=== PATIENT | female | born 1995 | race African-American/Black ===

== ENCOUNTER 2017-01-03 13:54 | Emergency (ER) | payer OTHER ==
[~2017-01-03] VITALS: Ht 165.1 cm; Wt 58.0 kg
[~2017-01-03 13:54] MED LIST: DICL50TA2 PO; LAMI25TA3 PO; OMEP20TA39 PO
[2017-01-03 13:55] VITALS: BP 140/87; PULSE 84; RESP 16; TEMP 98.1; O2SAT 99
--- NOTE | 2017-01-03 14:14 | PD ---
Physical Exam Date Seen by Provider: January 03, 2017 Time Seen by Provider: 14:13 Narrative Pt presents with lower abdominal cramping, LMP a month ago. Hx of ovarian cysts. + nausea, no vomiting. VSS, awaiting bed placement. Data Data Last Documented VS Vital Signs Date Time Temp Pulse Resp B/P Pulse Ox O2 Delivery O2 Flow Rate FiO2 01/03/17 13:55 98.1 84 16 140/87 99 MDM Supervised Visit with ELROY: Lashell Mancilla January 03, 2017 14:14
[2017-01-03] MEDS ORDERED: SODIUM CHLOR 0.9% 1000 ML INJ 1,000 ML IV SCH (14:53)
[2017-01-03] MEDS ORDERED: ONDANSETRON HCL 4 MG/2 ML VIAL IVP ONE (15:00)
[2017-01-03] MEDS ORDERED: SODIUM CHLORIDE 0.9% FLUSH 10 ML FLUSH IV FLUSH PRN (15:00)
[2017-01-03] MEDS ORDERED: KETOROLAC TROMETHAMINE 30 MG/ML (IVP) VIAL IV PUSH ONE (15:00)
[2017-01-03 15:51] LABS: ALT (GPT) 13 U/L (10-53); ANION GAP 6 MEQ/L (5-15); AST (GOT) 13 U/L (15-37); BICARBONATE 28.1 MEQ/L (21.0-32.0); BLOOD UREA NITROGEN 6 MG/DL (7-18); CHLORIDE 103 MEQ/L (98-107); GLOMERULAR FILTRATION RATE 187 ML/MIN (>89); POTASSIUM 3.6 MEQ/L (3.5-5.1); SODIUM (NA) 137 MEQ/L (136-145)
--- NOTE | 2017-01-03 15:52 | PD ---
HPI Chief Complaint: Abdominal Pain Time Seen by Provider: 14:33 Travel History International Travel<30 days: No Contact w/Intl Traveler<30days: No Traveled to known affect area: No History of Present Illness HPI Patient is a 21 year old female with history of ovarian cysts, who comes in complaining of lower abdominal pain for the past 3 days. She says the pain is across her lower abdomen and has been getting worse. She says she was recently on her menstrual period, but it had gone away. Now she has noticed some spotting. She has had some nausea, but denies vomiting. She denies fevers or chills. PFSH Past Medical History Asthma: Yes (exercise induced) Respiratory: Yes Tetanus Vaccination: Never Vaccinated Influenza Vaccination: Yes ?: Not LMP: 01/01/17 Past Surgical History Surgical History: No Previous Surgery Social History Alcohol Use: No Tobacco Use: No Substance Use: No Allergies-Medications (Allergen,Severity, Reaction): Coded Allergies: No Known Allergies (Unverified , 12/01/15) Reported Meds & Prescriptions Reported Meds & Active Scripts Active Motrin Ib (Ibuprofen) 200 Mg Tab 600 Mg PO Q6H PRN Doxycycline Hyclate 100 Mg Cap 100 Mg PO BID 14 Days Review of Systems Except as stated in HPI: all other systems reviewed are Neg General / Constitutional: No: Fever, Chills HENT: Positive: Headaches, No: Lightheadedness Cardiovascular: No: Chest Pain or Discomfort Respiratory: No: Shortness of Breath Gastrointestinal: Positive: Nausea, Abdominal Pain, No: Vomiting Genitourinary: No: Dysuria Skin: No Rash, No Itching Neurologic: No: Weakness, Dizziness Physical Exam Narrative GENERAL: Awake and alert, in no acute distress. SKIN: Focused skin assessment warm/dry. HEAD: Atraumatic. Normocephalic. EYES: Pupils equal and round. No scleral icterus. ENT: Mucous membranes pink and moist. NECK: Trachea midline. No JVD. CARDIOVASCULAR: Regular rate and rhythm. No murmur appreciated. RESPIRATORY: No accessory muscle use. Clear to auscultation. Breath sounds equal bilaterally. GASTROINTESTINAL: Abdomen soft, nondistended. Tender to palpation across the lower abdomen, worse in the right lower quadrant and suprapubic area. Voluntary guarding, no rebound. : Performed in the presence of female nurse, Lexi. Scant yellowish discharge and occasional blood. No cervical lesions. No CMT. Tender to right adnexa. MUSCULOSKELETAL: No obvious deformities. No clubbing. No cyanosis. No edema. NEUROLOGICAL: Awake and alert. No obvious cranial nerve deficits. Motor grossly within normal limits. Normal speech. PSYCHIATRIC: Appropriate mood and affect; insight and judgment normal. Data Data Last Documented VS Vital Signs Date Time Temp Pulse Resp B/P Pulse Ox O2 Delivery O2 Flow Rate FiO2 01/03/17 19:47 78 18 141/89 100 Room Air 01/03/17 13:55 98.1 Orders Complete Blood Count With Diff (01/03/17 14:53) Comprehensive Metabolic Panel (01/03/17 14:53) Urinalysis - C+S If Indicated (01/03/17 14:53) Ua Includes Microscopic (01/03/17 14:53) Ct Abd/Pel W Iv Contrast(Rout) (01/03/17 14:53) Iv Access Insert/Monitor (01/03/17 14:53) Ecg Monitoring (01/03/17 14:53) Oximetry (01/03/17 14:53) Ondansetron Inj (Zofran Inj) (01/03/17 15:00) Sodium Chlor 0.9% 1000 Ml Inj (Ns 1000 M (01/03/17 14:53) Sodium Chloride 0.9% Flush (Ns Flush) (01/03/17 15:00) Ed Urine Pregnancytest Poc (01/03/17 14:53) Ketorolac Inj (Toradol Inj) (01/03/17 15:00) Wet Prep Profile (01/03/17 15:52) Gc And Chlamydia Pcr (01/03/17 15:52) Iohexol 350 Inj (Omnipaque 350 Inj) (01/03/17 16:58) Us Pelvis Comp W Transvaginal (01/03/17 ) Doxycycline (Vibramycin) (01/03/17 19:30) Ceftriaxone Inj (Rocephin Inj) (01/03/17 19:30) Lidocaine 1% Inj (50 Ml) (Xylocaine 1% I (01/03/17 19:30) Labs Laboratory Tests Test 01/03/17 01/03/17 01/03/17 15:19 15:27 17:55 White Blood Count 6.0 TH/MM3 Red Blood Count 4.78 MIL/MM3 Hemoglobin 10.6 GM/DL Hematocrit 34.1 % Mean Corpuscular Volume 71.3 FL Mean Corpuscular Hemoglobin 22.1 PG Mean Corpuscular Hemoglobin 31.0 % Concent Red Cell Distribution Width 15.0 % Platelet Count 414 TH/MM3 Mean Platelet Volume 8.3 FL Neutrophils (%) (Auto) 62.0 % Lymphocytes (%) (Auto) 28.4 % Monocytes (%) (Auto) 6.2 % Eosinophils (%) (Auto) 2.1 % Basophils (%) (Auto) 1.3 % Neutrophils # (Auto) 3.7 TH/MM3 Lymphocytes # (Auto) 1.7 TH/MM3 Monocytes # (Auto) 0.4 TH/MM3 Eosinophils # (Auto) 0.1 TH/MM3 Basophils # (Auto) 0.1 TH/MM3 CBC Comment AUTO DIFF Differential Comment AUTO DIFF CONFIRMED Platelet Estimate NORMAL Platelet Morphology Comment NORMAL Ovalocytes 1+ Keratocytes OCC Sodium Level 137 MEQ/L Potassium Level 3.6 MEQ/L Chloride Level 103 MEQ/L Carbon Dioxide Level 28.1 MEQ/L Anion Gap 6 MEQ/L Blood Urea Nitrogen 6 MG/DL Creatinine 0.50 MG/DL Estimat Glomerular Filtration 187 ML/MIN Rate Random Glucose 80 MG/DL Calcium Level 8.9 MG/DL Total Bilirubin 0.4 MG/DL Aspartate Amino Transf 13 U/L (AST/SGOT) Alanine Aminotransferase 13 U/L (ALT/SGPT) Alkaline Phosphatase 34 U/L Total Protein 8.4 GM/DL Albumin 3.5 GM/DL Urine Color LIGHT-YELLOW Urine Turbidity CLEAR Urine pH 7.5 Urine Specific [place] 1.011 Urine Protein NEG mg/dL Urine Glucose (UA) NEG mg/dL Urine Ketones NEG mg/dL Urine Occult Blood SMALL Urine Nitrite NEG Urine Bilirubin NEG Urine Urobilinogen LESS THAN 2.0 MG/DL Urine Leukocyte Esterase NEG Urine RBC LESS THAN 1 /hpf Urine WBC LESS THAN 1 /hpf Urine Squamous Epithelial 1 /hpf Cells Microscopic Urinalysis Comment CULT NOT INDICATED Clue Cells (Wet Prep) NS Vaginal Trichomonas (Wet Prep) NS Vaginal Yeast (Wet Prep) NS Chlamydia trachomatis DNA NOT DETECTED (PCR) Neisseria gonorrhoeae DNA NOT DETECTED (PCR) MDM Medical Decision Making Medical Screen Exam Complete: Yes Emergency Medical Condition: Yes Medical Record Reviewed: Yes Differential Diagnosis ovarian cyst vs ovarian torsion vs gc/chlamydia vs UTI vs BV vs appendicitis Narrative Course Patient is a 21 year old female who comes in complaining with severe lower abdominal pain. Exam shows tenderness to the lower abdomen, worse in the RLQ and suprapubic area. IV established, labs sent. swab sent for gc/chlamydia and wet prep. Given IVF, Zofran, Toradol. CT abdomen and pelvis performed shows large complex cyst on the right and a smaller complex cyst on the left. Patient signed out to Dr. Banegas to follow up US to evaluate for torsion. Scripts Ibuprofen (Motrin Ib)200 Mg [id number] Mg PO Q6H PRN (PAIN SCALE 5 TO 10) #30 TAB Ref 0 Prov:Tutu Banegas MD 01/03/17 Doxycycline Hyclate 100 Mg [id number] Mg PO BID 14 Days Ref 0 Prov:Tutu Banegas MD 01/03/17 Condition: Stable Thania Hu MD January 03, 2017 15:52
[2017-01-03 15:54] LABS: ALKALINE PHOSPHATASE 34 U/L (45-117); TOTAL BILIRUBIN ADULT 0.4 MG/DL (0.2-1.0)
[2017-01-03 15:58] LABS: BLOOD, URINE SMALL (NEG); COMMENT (UR) CULT NOT INDICATED; CULTURE IF INDICATED CULT NOT INDICATED; GLUCOSE,URINE NEG (NEG); KETONE, URINE NEG (NEG); NITRITE,URINE NEG (NEG); PH, URINE 7.5 (5.0-8.5); SQUAMOUS EPITHELIAL CELL URINE 1 /hpf (0-5); URINE COLOR LIGHT-YELLOW (YELLW/STRAW)
[2017-01-03] MEDS ORDERED: IOHEXOL 350 MG/ML 10 ML VIAL (for RAD DIAG) IV ONE (16:58)
[2017-01-03 17:25] LABS: AUTOMATED NEUTROPHIL # 3.7 TH/MM3 (1.8-7.7); BASOPHIL # 0.1 TH/MM3 (0-0.2); BASOPHIL % 1.3 % (0.0-2.0); EOSINOPHIL # 0.1 TH/MM3 (0-0.4); EOSINOPHIL % 2.1 % (0.0-4.0); HEMATOCRIT 34.1 % (35.0-46.0); LYMPH % 28.4 % (9.0-44.0); LYMPHOCYTE # 1.7 TH/MM3 (1.0-4.8); MEAN CELL VOLUME 71.3 FL (80.0-100.0); MEAN CORPUSCULAR HEMOGLOBIN 22.1 PG (27.0-34.0); MONO % 6.2 % (0.0-8.0); PLATELET COUNT 414 TH/MM3 (150-450); RED BLOOD COUNT 4.78 MIL/MM3 (4.00-5.30)
[2017-01-03 17:28] LABS: HEMO FLAGS AUTO DIFF
--- NOTE | 2017-01-03 17:32 | RADRPT ---
EXAM DATE/TIME: 01/03/2017 16:53 [facility] COMPARISON: No previous studies available for comparison. INDICATIONS : Bilateral lower quadrant pain, worse on right side. IV CONTRAST: 71 cc Omnipaque 350 (iohexol) IV ORAL CONTRAST: No oral contrast ingested. RADIATION DOSE: 9.96 CTDIvol (mGy) MEDICAL HISTORY : Asthma, ovarian cysts. SURGICAL HISTORY : None. ENCOUNTER: Initial ACUITY: 3 days PAIN SCALE: 6/10 LOCATION: Right lower quadrant TECHNIQUE: Volumetric scanning of the abdomen and pelvis was performed. Using automated exposure control and ad justment of the mA and/or kV according to patient size, radiation dose was kept as low as reasonably achievable to obtain optimal diagnostic quality images. FINDINGS: LOWER LUNGS: The visualized lower lungs are clear. LIVER: Homogeneous density without lesion. There is no dilation of the biliary tree. No calcified gallston es. SPLEEN: Normal size without lesion. PANCREAS: Within normal limits. KIDNEYS: Normal in size and shape. There is no mass, stone or hydronephrosis. ADRENAL GLANDS: Within normal limits. VASCULAR: There is no aortic aneurysm. BOWEL/MESENTERY: The stomach, small bowel, and colon demonstrate no acute abnormality. There is no free intraperitone al air or fluid. No evidence of appendicitis. ABDOMINAL WALL: Within normal limits. RETROPERITONEUM: There is no lymphadenopathy. BLADDER: No wall thickening or mass. REPRODUCTIVE: Multiple bilateral adnexal cysts are present. Largest cyst on the right is approximately 14 mm. Numer ous multiloculated cysts of the left adnexa are seen left and posterior to the uterus measuring appro ximately 4.2 x 7.2 x 4.2 cm in conglomerate with the individual locules measuring up to 3.4 cm in siz e. One of the locules left of the uterus has somewhat intermediate attenuation, for example series 2 image 62, and the differential would include a debris filled cyst, recently hemorrhagic cyst or an en dometrioma. Hydrosalpinx conceivable. Miniscule if any free fluid in the pelvic cul-de-sac so acute t ubo-ovarian abscess is considered unlikely.. INGUINAL: There is no lymphadenopathy or hernia. MUSCULOSKELETAL: Within normal limits for patient age. CONCLUSION: Complex bilateral adnexal cysts, especially on the left. Please see above. The rest of the study is w ithin normal limits. Murali Ibarra MD on January 03, 2017 at 17:26 Board Certified Radiologist. This report was verified electronically.
[2017-01-03 18:01] LABS: KERATOCYTES OCC (NORMAL); OVALOCYTES 1+ (NORMAL); PLATELET ESTIMATE SMEAR NORMAL (NORMAL); PLATELET MORPHOLOGY NORMAL (NORMAL); SCAN/DIFF AUTO DIFF CONFIRMED
--- NOTE | 2017-01-03 19:07 | RADRPT ---
EXAM DATE/TIME: 01/03/2017 17:23 [facility] COMPARISON: CT ABDOMEN & PELVIS W CONTRAST, January 03, 2017, 16:53. INDICATIONS : Pelvic pain. MEDICAL HISTORY : Asthma. Ovarian cysts. Pelvic pain. SURGICAL HISTORY : None. ENCOUNTER: Initial ACUITY: 3 days PAIN SCORE: 6/10 LOCATION: Bilateral pelvis MEASUREMENTS: UTERUS: 8.0 x 5.0 x 3.6 cm ENDOMETRIAL STRIPE: 6 mm RIGHT OVARY: 5.2 x 4.8 x 3.4 cm LEFT OVARY: 3.5 x 2.6 x 2.0 cm FINDINGS: UTERUS: The myometrium has homogeneous echotexture without mass. RIGHT OVARY: There is a 5.2 cm complex mass of the right adnexa. This has low level echoes within it. There are at least 2 adjacent hypoechoic areas within this mass with the largest area measuring 3.6 cm diameter. These have low level echoes within them. A separate right ovary is not seen. LEFT OVARY: Ovary contains no mass or significant cystic lesion. MISCELLANEOUS: There is a mild amount of free fluid seen in the right adnexa. CONCLUSION: 5 cm mass in the right adnexa potentially related to an enlarged ovary with low level echoes. This is nonspecific. It may represent hemorrhagic cysts. Other etiologies including complex hydrosalpinx or TOAs could have this appearance. Endometriomas or other ovarian masses could have this appearance. Th is should be correlated clinically and followed. The left ovary and uterus appear grossly normal. Murali Seth MD on January 03, 2017 at 19:00 Board Certified Radiologist. This report was verified electronically.
[2017-01-03] MEDS ORDERED: DOXY100C PO (19:24)
--- NOTE | 2017-01-03 19:24 | PD ---
Data Data Last Documented VS Vital Signs Date Time Temp Pulse Resp B/P Pulse Ox O2 Delivery O2 Flow Rate FiO2 01/03/17 15:30 Room Air 01/03/17 13:55 98.1 84 16 140/87 99 Orders Complete Blood Count With Diff (01/03/17 14:53) Comprehensive Metabolic Panel (01/03/17 14:53) Urinalysis - C+S If Indicated (01/03/17 14:53) Ua Includes Microscopic (01/03/17 14:53) Ct Abd/Pel W Iv Contrast(Rout) (01/03/17 14:53) Iv Access Insert/Monitor (01/03/17 14:53) Ecg Monitoring (01/03/17 14:53) Oximetry (01/03/17 14:53) Ondansetron Inj (Zofran Inj) (01/03/17 15:00) Sodium Chlor 0.9% 1000 Ml Inj (Ns 1000 M (01/03/17 14:53) Sodium Chloride 0.9% Flush (Ns Flush) (01/03/17 15:00) Ed Urine Pregnancytest Poc (01/03/17 14:53) Ketorolac Inj (Toradol Inj) (01/03/17 15:00) Wet Prep Profile (01/03/17 15:52) Gc And Chlamydia Pcr (01/03/17 15:52) Iohexol 350 Inj (Omnipaque 350 Inj) (01/03/17 16:58) Us Pelvis Comp W Transvaginal (01/03/17 ) Doxycycline (Vibramycin) (01/03/17 19:30) Ceftriaxone Inj (Rocephin Inj) (01/03/17 19:30) Lidocaine 1% Inj (50 Ml) (Xylocaine 1% I (01/03/17 19:30) Labs Laboratory Tests Test 01/03/17 01/03/17 01/03/17 15:19 15:27 17:55 White Blood Count 6.0 TH/MM3 Red Blood Count 4.78 MIL/MM3 Hemoglobin 10.6 GM/DL Hematocrit 34.1 % Mean Corpuscular Volume 71.3 FL Mean Corpuscular Hemoglobin 22.1 PG Mean Corpuscular Hemoglobin 31.0 % Concent Red Cell Distribution Width 15.0 % Platelet Count 414 TH/MM3 Mean Platelet Volume 8.3 FL Neutrophils (%) (Auto) 62.0 % Lymphocytes (%) (Auto) 28.4 % Monocytes (%) (Auto) 6.2 % Eosinophils (%) (Auto) 2.1 % Basophils (%) (Auto) 1.3 % Neutrophils # (Auto) 3.7 TH/MM3 Lymphocytes # (Auto) 1.7 TH/MM3 Monocytes # (Auto) 0.4 TH/MM3 Eosinophils # (Auto) 0.1 TH/MM3 Basophils # (Auto) 0.1 TH/MM3 CBC Comment AUTO DIFF Differential Comment AUTO DIFF CONFIRMED Platelet Estimate NORMAL Platelet Morphology Comment NORMAL Ovalocytes 1+ Keratocytes OCC Sodium Level 137 MEQ/L Potassium Level 3.6 MEQ/L Chloride Level 103 MEQ/L Carbon Dioxide Level 28.1 MEQ/L Anion Gap 6 MEQ/L Blood Urea Nitrogen 6 MG/DL Creatinine 0.50 MG/DL Estimat Glomerular Filtration 187 ML/MIN Rate Random Glucose 80 MG/DL Calcium Level 8.9 MG/DL Total Bilirubin 0.4 MG/DL Aspartate Amino Transf 13 U/L (AST/SGOT) Alanine Aminotransferase 13 U/L (ALT/SGPT) Alkaline Phosphatase 34 U/L Total Protein 8.4 GM/DL Albumin 3.5 GM/DL Urine Color LIGHT-YELLOW Urine Turbidity CLEAR Urine pH 7.5 Urine Specific [place] 1.011 Urine Protein NEG mg/dL Urine Glucose (UA) NEG mg/dL Urine Ketones NEG mg/dL Urine Occult Blood SMALL Urine Nitrite NEG Urine Bilirubin NEG Urine Urobilinogen LESS THAN 2.0 MG/DL Urine Leukocyte Esterase NEG Urine RBC LESS THAN 1 /hpf Urine WBC LESS THAN 1 /hpf Urine Squamous Epithelial 1 /hpf Cells Microscopic Urinalysis Comment CULT NOT INDICATED Clue Cells (Wet Prep) NS Vaginal Trichomonas (Wet Prep) NS Vaginal Yeast (Wet Prep) NS MDM Medical Record Reviewed: Yes Supervised Visit with ELROY: No Narrative Course CBC & BMP Diagram 01/03/17 15:19 Urine negative Wet prep negative Urinalysis no UTI Last 24 hours Impressions Abdomen/Pelvis CT 01/03/17 1453 Signed Impressions: Service Date/Time: December 16:53 - CONCLUSION: Complex bilateral adnexal cysts, especially on the left. Please see above. The rest of the study is within normal limits. Murali Ibarra MD Pelvis Ultrasound 01/03/17 0000 Signed Impressions: Service Date/Time: December 17:23 - CONCLUSION: 5 cm mass in the right adnexa potentially related to an enlarged ovary with low level echoes. This is nonspecific. It may represent hemorrhagic cysts. Other etiologies including complex hydrosalpinx or TOAs could have this appearance. Endometriomas or other ovarian masses could have this appearance. This should be correlated clinically and followed. The left ovary and uterus appear grossly normal. Murali Seth MD The case was discussed at length with the patient who agrees to follow-up with obstetrics/gynecology as listed below. Case also discussed with on-call obstetrics he advises outpatient follow-up coupled with pain medication; a course of doxycycline considered not inappropriate. The patient is resting comfortably and feels better, is alert and in no distress at time of reassessment prior to discharge 725pm. The patients results and examination findings were discussed. The repeat examination is unremarkable and benign. The history, exam, diagnostic testing, and current condition do not suggest any significant pathology to warrant further testing, continued ED treatment, admission, or surgical evaluation at this point. The vital signs have been stable. The patient does not have uncontrollable pain, intractable vomiting, or other significant symptoms. The patient's condition is stable and appropriate for discharge. The patient will pursue further outpatient evaluation with a primary care physician or other designated or consulting physician as indicated in the discharge instructions. The patient expressed understanding and was agreeable with this plan. Diagnosis Primary Impression: Adnexal tenderness, right Additional Impression: Ovarian mass, right Referrals: Minoo Mora MD 1 day Additional Instruction: You have a choice when it comes to health care, and we are glad that you chose [facility] Hopefully, we have met your expectations on today's visit. You are welcome to return to [facility] at any time, as we are committed to meeting the health care needs of our community. Med/Other Pt SpecificInfo: Prescription(s) given Scripts Ibuprofen (Motrin Ib)200 Mg Cod046 Mg PO Q6H PRN (PAIN SCALE 5 TO 10) #30 TAB Ref 0 Prov:Tutu Banegas MD 01/03/17 Doxycycline Hyclate 100 Mg [id number] Mg PO BID 14 Days Ref 0 Prov:Tutu Banegas MD 01/03/17 Disposition: 01 DISCHARGE HOME Condition: Stable Tutu Banegas MD January 03, 2017 19:24
[2017-01-03] MEDS ORDERED: MOTR200T4 PO (19:26)
[2017-01-03] MEDS ORDERED: cefTRIAXone 250 MG VIAL IM ONE (19:30)
[2017-01-03] MEDS ORDERED: LIDOCAINE HCL 1% 50 ML VIAL IM ONE (19:30)
[2017-01-03] MEDS ORDERED: DOXYCYCLINE HYCLATE 100 MG CAP PO ONE (19:30)
[2017-01-03 19:47] VITALS: BP 141/89; PULSE 78; RESP 18; O2SAT 100
[2017-01-03 20:01] LABS: CHLAMYDIA PCR NOT DETECTED (NOT DETECT); NEISSERIA PCR NOT DETECTED (NOT DETECT)
== END 2017-01-03 20:29 | disposition home or self-care (01) ==
LOC: NEPD 13:54
DX: N83.9 Noninflammatory disorder of ovary, fallopian tube and broad ligament, unspecified (principal)
CPT/HCPCS: 74177; 76830; 76856; 80053; 81001; 84703; 85025; 87210; 87491; 87591; 96361; 96372; 96374; 96375; 99284; J0696; J1885; J2405; J7030; Q9967

== ENCOUNTER 2017-03-31 01:18 | Emergency (ER) | payer OTHER ==
[~2017-03-31 01:18] MED LIST changes: -DICL50TA2 PO; +DOXY100C PO; -LAMI25TA3 PO; +MOTR200T4 PO; -OMEP20TA39 PO
[2017-03-31 01:23] VITALS: BP 130/72; PULSE 84; RESP 16; TEMP 98.9; O2SAT 98
--- NOTE | 2017-03-31 01:42 | PD ---
HPI Chief Complaint: Complaint Time Seen by Provider: 01:41 Travel History International Travel<30 days: No Contact w/Intl Traveler<30days: No Traveled to known affect area: No History of Present Illness HPI 21-year-old female with history of no significant past medical issues, presents to the ER today because she is having burning on urination for 4-5 days. She has been having lower back pains and lower abdominal discomfort as well. She denies any vomiting, fevers, unusual vaginal discharge, or any other symptoms. Modifying Factors: None Associated Signs & Symptoms: Urinary symptoms, lower back and lower abdominal pains Risk Factors: None PFSH Past Medical History Asthma: Yes (exercise induced) Diminished Hearing: No Respiratory: Yes ?: Not LMP: 03/21/17 Past Surgical History Surgical History: No Previous Surgery Social History Alcohol Use: No Tobacco Use: No Substance Use: No Allergies-Medications (Allergen,Severity, Reaction): Coded Allergies: No Known Allergies (Unverified , 12/01/15) Reported Meds & Prescriptions Reported Meds & Active Scripts Active Review of Systems Except as stated in HPI: all other systems reviewed are Neg Physical Exam Narrative GENERAL: Well-developed young -[place]ian female patient currently in no acute distress. Awake and oriented 3. SKIN: Focused skin assessment warm/dry. HEAD: Atraumatic. Normocephalic. EYES: Pupils equal and round. No scleral icterus. No injection or drainage. ENT: No nasal bleeding or discharge. Mucous membranes pink and moist. NECK: Trachea midline. No JVD. CARDIOVASCULAR: Regular rate and rhythm. No murmur appreciated. RESPIRATORY: No accessory muscle use. Clear to auscultation. Breath sounds equal bilaterally. GASTROINTESTINAL: Abdomen soft, mild suprapubic tenderness without guarding or rebound, nondistended. Hepatic and splenic margins not palpable. GENITOURINARY: Normal external genitalia without lesions or erythema. Vaginal vault without blood or drainage. Cervical os was closed without drainage. No cervical motion tenderness. Uterus nontender and nonenlarged. Bilateral adnexa nontender without masses. BACK: No CVA tenderness. No rash. No point tenderness on palpation of the spine. MUSCULOSKELETAL: No obvious deformities. No clubbing. No cyanosis. No edema. NEUROLOGICAL: Awake and alert. No obvious cranial nerve deficits. Motor grossly within normal limits. Normal speech. PSYCHIATRIC: Appropriate mood and affect; insight and judgment normal. Data Data Last Documented VS Vital Signs Date Time Temp Pulse Resp B/P Pulse Ox O2 Delivery O2 Flow Rate FiO2 03/31/17 02:30 98 Room Air 03/31/17 01:23 98.9 84 16 130/72 Orders Urinalysis - C+S If Indicated (03/31/17 01:28) Ed Urine Pregnancytest Poc (03/31/17 01:28) Gc And Chlamydia Pcr (03/31/17 02:02) Wet Prep Profile (03/31/17 02:02) Complete Blood Count With Diff (03/31/17 02:02) Comprehensive Metabolic Panel (03/31/17 02:02) Iv Access Insert/Monitor (03/31/17 02:02) Ecg Monitoring (03/31/17 02:02) Oximetry (03/31/17 02:02) Sodium Chloride 0.9% Flush (Ns Flush) (03/31/17 02:15) Labs Laboratory Tests Test 03/31/17 03/31/17 01:34 02:16 Urine Color YELLOW Urine Turbidity CLEAR Urine pH 5.5 Urine Specific [place] 1.028 Urine Protein TRACE mg/dL Urine Glucose (UA) NEG mg/dL Urine Ketones NEG mg/dL Urine Occult Blood NEG Urine Nitrite NEG Urine Bilirubin NEG Urine Urobilinogen LESS THAN 2.0 MG/DL Urine Leukocyte Esterase NEG Urine RBC 1 /hpf Urine WBC LESS THAN 1 /hpf Urine Squamous Epithelial 1 /hpf Cells Urine Mucus FEW /lpf Microscopic Urinalysis Comment CULT NOT INDICATED White Blood Count 6.4 TH/MM3 Red Blood Count 4.50 MIL/MM3 Hemoglobin 10.2 GM/DL Hematocrit 32.5 % Mean Corpuscular Volume 72.2 FL Mean Corpuscular Hemoglobin 22.6 PG Mean Corpuscular Hemoglobin 31.4 % Concent Red Cell Distribution Width 14.5 % Platelet Count 403 TH/MM3 Mean Platelet Volume 7.5 FL Neutrophils (%) (Auto) 62.9 % Lymphocytes (%) (Auto) 27.3 % Monocytes (%) (Auto) 6.5 % Eosinophils (%) (Auto) 2.5 % Basophils (%) (Auto) 0.8 % Neutrophils # (Auto) 4.0 TH/MM3 Lymphocytes # (Auto) 1.7 TH/MM3 Monocytes # (Auto) 0.4 TH/MM3 Eosinophils # (Auto) 0.2 TH/MM3 Basophils # (Auto) 0.0 TH/MM3 CBC Comment DIFF FINAL Differential Comment Clue Cells (Wet Prep) NONE SEEN Vaginal Trichomonas (Wet Prep) NONE SEEN Vaginal Yeast (Wet Prep) NONE SEEN Sodium Level 139 MEQ/L Potassium Level 3.8 MEQ/L Chloride Level 106 MEQ/L Carbon Dioxide Level 28.0 MEQ/L Anion Gap 5 MEQ/L Blood Urea Nitrogen 10 MG/DL Creatinine 0.63 MG/DL Estimat Glomerular Filtration 143 ML/MIN Rate Random Glucose 90 MG/DL Calcium Level 8.4 MG/DL Total Bilirubin 0.1 MG/DL Aspartate Amino Transf 14 U/L (AST/SGOT) Alanine Aminotransferase 12 U/L (ALT/SGPT) Alkaline Phosphatase 27 U/L Total Protein 7.4 GM/DL Albumin 3.2 GM/DL [facility] Medical Decision Making Medical Screen Exam Complete: Yes Emergency Medical Condition: Yes Medical Record Reviewed: Yes Interpretation(s) Laboratory Tests Test 03/31/17 03/31/17 01:34 02:16 Urine Mucus FEW /lpf (OCC) Hemoglobin 10.2 GM/DL (11.6-15.3) Hematocrit 32.5 % (35.0-46.0) Mean Corpuscular Volume 72.2 FL (80.0-100.0) Mean Corpuscular Hemoglobin 22.6 PG (27.0-34.0) Mean Corpuscular Hemoglobin 31.4 % Concent (32.0-36.0) Calcium Level 8.4 MG/DL (8.5-10.1) Total Bilirubin 0.1 MG/DL (0.2-1.0) Aspartate Amino Transf 14 U/L (15-37) (AST/SGOT) Alkaline Phosphatase 27 U/L (45-117) Albumin 3.2 GM/DL (3.4-5.0) Differential Diagnosis Urinary symptoms, lower abdominal discomfort Narrative Course Abdomen is fairly benign. Lab work did not indicate a UTI or any significant leukocytosis. Patient's vital signs are stable in the ER and she has not . At this point, my plan would be to release her with follow-up to primary care physician. Return for worsening in symptoms as needed. The plan has been discussed with her and she states understanding. Considering that she is having urinary symptoms I plan would be to treat her empirically. Diagnosis Primary Impression: Urinary tract infection symptoms Med/Other Pt SpecificInfo: Prescription(s) given Scripts Sulfamethoxazole-Trimethoprim (Bactrim DS)800-160 Mg Tab1 Tab PO BID #6 TAB Ref 0 Prov:Abel Agrawal MD 03/31/17 Disposition: 01 DISCHARGE HOME Condition: Stable Abel Agrawal MD Mar 31, 2017 01:42
[2017-03-31 01:59] LABS: BLOOD, URINE NEG (NEG); COMMENT (UR) CULT NOT INDICATED; CULTURE IF INDICATED CULT NOT INDICATED; GLUCOSE,URINE NEG (NEG); KETONE, URINE NEG (NEG); MUCUS URINE FEW /lpf (OCC); NITRITE,URINE NEG (NEG); PH, URINE 5.5 (5.0-8.5); SQUAMOUS EPITHELIAL CELL URINE 1 /hpf (0-5); URINE COLOR YELLOW (YELLW/STRAW)
[2017-03-31] MEDS ORDERED: SODIUM CHLORIDE 0.9% FLUSH 10 ML FLUSH IV FLUSH PRN (02:15)
[2017-03-31 02:30] VITALS: O2SAT 98
[2017-03-31 02:31] LABS: BASOPHIL % 0.8 % (0.0-2.0); EOSINOPHIL # 0.2 TH/MM3 (0-0.4); EOSINOPHIL % 2.5 % (0.0-4.0); HEMATOCRIT 32.5 % (35.0-46.0); HEMO FLAGS DIFF FINAL; LYMPH % 27.3 % (9.0-44.0); LYMPHOCYTE # 1.7 TH/MM3 (1.0-4.8); MEAN CELL VOLUME 72.2 FL (80.0-100.0); MEAN CORPUSCULAR HEMOGLOBIN 22.6 PG (27.0-34.0); MEAN CORPUSCULAR HGB CONC 31.4 % (32.0-36.0); MONO % 6.5 % (0.0-8.0); NEUT % 62.9 % (16.0-70.0); PLATELET COUNT 403 TH/MM3 (150-450); RED CELL DISTRIBUTION WIDTH 14.5 % (11.6-17.2); WHITE BLOOD COUNT 6.4 TH/MM3 (4.0-11.0)
[2017-03-31 02:45] LABS: ALT (GPT) 12 U/L (10-53); ANION GAP 5 MEQ/L (5-15); AST (GOT) 14 U/L (15-37); BLOOD UREA NITROGEN 10 MG/DL (7-18); CHLORIDE 106 MEQ/L (98-107); GLOMERULAR FILTRATION RATE 143 ML/MIN (>89); POTASSIUM 3.8 MEQ/L (3.5-5.1); SODIUM (NA) 139 MEQ/L (136-145)
[2017-03-31 02:47] LABS: ALKALINE PHOSPHATASE 27 U/L (45-117); TOTAL BILIRUBIN ADULT 0.1 MG/DL (0.2-1.0)
[2017-03-31] MEDS ORDERED: BACT800T5 PO (02:52)
[2017-03-31 04:19] LABS: CHLAMYDIA PCR NOT DETECTED (NOT DETECT); NEISSERIA PCR NOT DETECTED (NOT DETECT)
== END 2017-03-31 05:00 | disposition home or self-care (01) ==
LOC: NEPE 01:18
DX: N39.0 Urinary tract infection, site not specified (principal)
CPT/HCPCS: 80053; 81001; 84703; 85025; 87210; 87491; 87591; 99283

== ENCOUNTER 2017-09-25 10:19 | Emergency (ER) | payer SELFPAY ==
[~2017-09-25] VITALS: Ht 162.6 cm; Wt 57.5 kg
[~2017-09-25 10:19] MED LIST changes: +BACT800T5 PO; -DOXY100C PO; -MOTR200T4 PO
[2017-09-25 10:21] VITALS: BP 120/74; PULSE 81; RESP 16; TEMP 98.1; O2SAT 97
--- NOTE | 2017-09-25 11:04 | PD ---
HPI Chief Complaint: General Weakness Time Seen by Provider: 10:55 Travel History International Travel<30 days: No Contact w/Intl Traveler<30days: No Traveled to known affect area: No History of Present Illness HPI This is a 21 year old female who presents to the emergency department with generalized weakness and lightheadedness that's been going on for months associated with some tingling and cramping in her hands and fatigue. She has not had insurance and hasn't had a primary care physician so she hasn't had this evaluated. She came in today because she wanted to get to the bottom of it. She has no energy she says. History Past Surgical History Surgical History: No Previous Surgery Social History Alcohol Use: No Tobacco Use: No Allergies-Medications (Allergen,Severity, Reaction): Coded Allergies: No Known Allergies (Unverified Adverse Reaction, Unknown, 09/25/17) Reported Meds & Prescriptions Reported Meds & Active Scripts Active No Active Prescriptions or Reported Medications Review of Systems General / Constitutional: No: Fever, Chills Respiratory: Positive: Cough Physical Exam Narrative GENERAL: Well-appearing, no acute distress, nontoxic SKIN: Warm and dry. HEAD: Atraumatic. Normocephalic. ENT: No nasal bleeding or discharge. Moist mucous membranes MUSCULOSKELETAL: No obvious deformities NEUROLOGICAL: Awake and alert. No obvious cranial nerve deficits. Motor grossly within normal limits. Normal speech. PSYCHIATRIC: Appropriate mood and affect; insight and judgment normal. Data Data Last Documented VS Vital Signs Date Time Temp Pulse Resp B/P (MAP) Pulse Ox O2 Delivery O2 Flow Rate FiO2 09/25/17 10:21 98.1 81 16 120/74 (89) 97 Room Air MDM Medical Screen Exam Complete: Yes Emergency Medical Condition: No Narrative Course Follow up with [facility] This is a 21-year-old female who presents to the emergency department with generalized malaise and weakness that's been going on for months. I don't think this is a medical emergency. She had no acute symptoms that caused her to present today but she says she just wanted to get it checked out. I explained to her that in the emergency department were limited in working up chronic complaints and she would more likely benefit from establishing a primary care physician. I think she is a good candidate for [facility] where she can have primary care follow-up. Primary Impression: Weakness Scripts No Active Prescriptions or Reported Meds Mariam Inman MD Sep 25, 2017 11:04
== END 2017-09-25 11:19 | disposition left against medical advice (07) ==
LOC: NEPD 10:19
DX: R53.1 Weakness (principal); R53.83 Other fatigue; R42 Dizziness and giddiness
CPT/HCPCS: 99281

== ENCOUNTER 2017-09-30 11:24 | Emergency (ER) | payer SELFPAY ==
[~2017-09-30] VITALS: Ht 165.1 cm; Wt 55.5 kg
[2017-09-30 11:25] VITALS: BP 154/85; PULSE 90; RESP 18; TEMP 97.7
--- NOTE | 2017-09-30 12:07 | PD ---
HPI Chief Complaint: ENT Complaint Time Seen by Provider: 11:55 Travel History International Travel<30 days: No Contact w/Intl Traveler<30days: No Traveled to known affect area: No History of Present Illness HPI This is a 21-year-old female here for evaluation of sore throat, ear pain, cough 3 days. Symptom severity is mild. No aggravating or alleviating factors. No sick contacts or foreign travel. PFSH Past Medical History Asthma: Yes (exercise induced) Diminished Hearing: No Respiratory: Yes ?: Not Para: 0 Social History Alcohol Use: No Tobacco Use: No Substance Use: No Allergies-Medications (Allergen,Severity, Reaction): Coded Allergies: No Known Allergies (Unverified Adverse Reaction, Unknown, 09/25/17) Reported Meds & Prescriptions Reported Meds & Active Scripts Active No Active Prescriptions or Reported Medications Review of Systems Except as stated in HPI: all other systems reviewed are Neg General / Constitutional: No: Fever Eyes: No: Visual changes HENT: Positive: Sore Throat, Congestion Respiratory: Positive: Cough Gastrointestinal: No: Abdominal Pain Genitourinary: No: Dysuria Physical Exam Narrative GENERAL: Alert and well-appearing 21-year-old female SKIN: Warm and dry. No rash. HEAD: Normocephalic. EYES: No injection or drainage. Ears/nose/throat: No TM erythema, clear nasal discharge, mild pharyngeal erythema without tonsillar hypertrophy or exudate. NECK: No JVD or lymphadenopathy. CARDIOVASCULAR: Regular rate and rhythm RESPIRATORY: Breath sounds equal bilaterally. No accessory muscle use. Data Data Last Documented VS Vital Signs Date Time Temp Pulse Resp B/P (MAP) Pulse Ox O2 Delivery O2 Flow Rate FiO2 09/30/17 11:25 97.7 90 18 154/85 (108) Room Air MDM Medical Decision Making Medical Screen Exam Complete: Yes Emergency Medical Condition: Yes Differential Diagnosis URI, strep pharyngitis, otitis media Narrative Course This is a 21-year-old female here with mild viral URI-like symptoms. She is well-appearing. Symptomatic treatment discussed with patient. Diagnosis Primary Impression: Viral URI Referrals: Primary Care Physician Departure Forms: Tests/Procedures, Work Release Enter return to work date: Oct 01, 2017 Additional Instructions: Take [id number] Tylenol or ibuprofen for pain. Stay well hydrated by drinking plenty of fluids. Follow-up with her doctor. Scripts No Active Prescriptions or Reported Meds Disposition: 01 DISCHARGE HOME Condition: Stable Margaret Hopper Sep 30, 2017 12:07
== END 2017-09-30 12:53 | disposition home or self-care (01) ==
LOC: NEPK 11:24
DX: J06.9 Acute upper respiratory infection, unspecified (principal); J45.909 Unspecified asthma, uncomplicated
CPT/HCPCS: 99282

== ENCOUNTER 2017-10-15 21:40 | Emergency (ER) | payer OTHER ==
[~2017-10-15] VITALS: Ht 162.6 cm; Wt 58.0 kg
[2017-10-15 21:43] VITALS: BP 124/72; PULSE 68; RESP 16; TEMP 98.3; O2SAT 99
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
[2017-10-15] MEDS ORDERED: CYCL5TAB PO (22:30)
[2017-10-15] MEDS ORDERED: IBUPROFEN 600 MG TAB PO ONE (22:30)
[2017-10-15] MEDS ORDERED: traMADol HCL 50 MG TAB PO ONE (22:30)
[2017-10-15] MEDS ORDERED: IBUP-232 PO (22:30)
[2017-10-15] MEDS ORDERED: CYCLOBENZAPRINE HCL 10 MG TAB PO ONE (22:30)
== END 2017-10-15 22:42 | disposition home or self-care (01) ==
LOC: NEPK 21:40
DX: M54.5 Low back pain (principal); M25.562 Pain in left knee; M25.561 Pain in right knee; J45.909 Unspecified asthma, uncomplicated; G44.319 Acute post-traumatic headache, not intractable; V43.62XA Car passenger injured in collision with other type car in traffic accident, initial encounter; Y92.410 Unspecified street and highway as the place of occurrence of the external cause
CPT/HCPCS: 99283